=== PATIENT | female | born 1995 | race Caucasian/White ===

== ENCOUNTER 2025-06-27 06:37 | Inpatient (IN) | payer BC ==
[2025-06-27 07:37] LABS: PLATELET COUNT,PLT 126 10^3/uL (150-450); RED BLOOD CELL COUNT 4.32 10^6/uL (4.2-5.4); WHITE BLOOD CELL COUNT,WBC 9.0 10^3/uL (5.0-10.0)
[2025-06-27] MEDS: Lactated Ringers 1,000 ML IV SCH (08:00)
[2025-06-27 08:06] LABS: BAND PERCENT MAN 2 %; LYMPHOCYTES PERCENT MAN 14 % (20-50); MONOCYTES PERCENT MAN 5 % (2-8); SEG NEUTROPHILS PERCENT MAN 79 % (42-75)
[2025-06-27] MEDS: Oxytocin/Lactated Ringers 30 UNIT/500 ML BAG IV SCH (09:59)
[2025-06-27] MEDS ORDERED: Carboprost Tromethamine 250 MCG/1 ML Amp IM PRN ×2 (10:00→11:38)
[2025-06-27] MEDS ORDERED: Lactated Ringers 1,000 ML IV ONE (10:00)
[2025-06-27] MEDS ORDERED: Lactated Ringers 1,000 ML IV SCH (10:00)
[2025-06-27] MEDS ORDERED: Sodium Chloride 0.9% 10 ML Syringe FLUSH PRN (10:00)
[2025-06-27] MEDS ORDERED: Ondansetron 4 MG Tab.DIS PO PRN (10:00)
[2025-06-27] MEDS: Ondansetron 4 MG/2 ML SDV IVPUSH PRN (10:01)
[2025-06-27] MEDS ORDERED: Oxytocin 10 Units/1 ML SDV IM PRN (11:38)
[2025-06-27] MEDS: Benzocaine/Menthol 20%-0.5% Spray 78 GM Cannister TOP PRN (13:28)
[2025-06-27] MEDS: Witch Hazel Medicated Pads 100/Jar TOP PRN (13:28)
[2025-06-28 06:42] LABS: PLATELET COUNT,PLT 179.0 10^3/uL (150-450); RED BLOOD CELL COUNT 3.96 10^6/uL (4.2-5.4); WHITE BLOOD CELL COUNT,WBC 9.3 10^3/uL (5.0-10.0)
[2025-06-28] MEDS ORDERED: ePHEDrine 50 MG/ML SDV ONE (06:56)
[2025-06-28] MEDS ORDERED: Phenylephrine 1% 10 MG/ML SDV ONE (06:56)
[2025-06-28] MEDS: Prenatal Multivitamin with Calcium/Folic Acid/Iron Tab PO SCH (08:34)
== END 2025-06-28 14:56 | disposition home or self-care (01) | DRG 560 ==
LOC: DL.OBCHECK 06:37 → DL.OB 07:25 → OBSVTOIN 11:06
PROVIDERS: ADMIT Family Medicine; ATTEND Family Medicine
PROC: 0KQM0ZZ Repair Perineum Muscle, Open Approach (ICD-10-PCS; principal; 2025-06-27)
PROC: 10E0XZZ Delivery of Products of Conception, External Approach (ICD-10-PCS; principal; 2025-06-27)
PROC: 3E0R3BZ Introduction of Anesthetic Agent into Spinal Canal, Percutaneous Approach (ICD-10-PCS; principal; 2025-06-27)
DX: O99.12 Other diseases of the blood and blood-forming organs and certain disorders involving the immune mechanism complicating childbirth (principal); Z3A.38 38 weeks gestation of pregnancy; Z37.0 Single live birth; Z79.899 Other long term (current) drug therapy; O70.1 Second degree perineal laceration during delivery; D69.6 Thrombocytopenia, unspecified
CPT/HCPCS: 36415; 51701; 59409; 85007; 85027; A9270-GY; J2405; J2590; J7120

== ENCOUNTER 2025-07-03 13:41 | Emergency (ER) | payer BC ==
[2025-07-03] MEDS: Ketorolac 30 MG/ML SDV IVPUSH ONE (14:23)
[2025-07-03 14:26] LABS: BASOPHILS PERCENT AUTO 0.3 % (0.0-1.0); EOSINOPHILS PERCENT AUTO 1.5 % (1.0-3.0); LYMPHOCYTES PERCENT AUTO 27.7 % (20.5-50.1); MONOCYTES PERCENT AUTO 5.2 % (2-8); NEUTROPHILS PERCENT AUTO 65.3 % (42.2-75.2); PLATELET COUNT,PLT 278 10^3/uL (150-450); RED BLOOD CELL COUNT 4.67 10^6/uL (4.2-5.4); WHITE BLOOD CELL COUNT,WBC 7.8 10^3/uL (5.0-10.0)
[2025-07-03 14:30] LABS: APPEARANCE,URINE SLIGHTLY CLOUDY (CLEAR); GLUCOSE,URINE NEGATIVE (NEGATIVE); OCCULT BLOOD,URINE LARGE (NEGATIVE)
[2025-07-03] MEDS: Ondansetron 4 MG/2 ML SDV IVPUSH ONE (14:37)
[2025-07-03 14:49] LABS: ALANINE AMINOTRANSFERASE,ALT 28.0 U/L (14-59); ASPARTATE AMNIOTRANSFERASE,AST 19.0 U/L (15-37); BILIRUBIN TOTAL 0.3 mg/dL (0.2-1.0); BLOOD UREA NITROGEN,BUN 17.0 mg/dL (7-18); CARBON DIOXIDE,CO2 26.0 mmol/L (21-32); CHLORIDE,CL 105.0 mmol/L (98-107); CREATININE 0.9 mg/dL (0.55-1.02); EST CRCL DRUG DOSING (CG) 87.12 mL/min; GLUCOSE RANDOM 107.0 mg/dL (70-99); POTASSIUM,K 4.2 mmol/L (3.5-5.1); PROTEIN TOTAL,TP 7.3 g/dL (6.4-8.2); SODIUM,NA 141.0 mmol/L (136-145)
[2025-07-03 14:49] LABS: EPITHELIAL CELLS,URINE MODERATE /HPF (NOT SEEN)
[2025-07-03 14:53] LABS: A/G RATIO 0.74; ESTIMATED GFR 89.0 mL/min (>=60)
== END 2025-07-03 15:43 ==
LOC: DL.ED 13:41
DX: O99.893 Other specified diseases and conditions complicating puerperium (principal); Z79.899 Other long term (current) drug therapy
CPT/HCPCS: 36415; 74176; 80053; 81001; 85025; 87086; 96374; 96375; 99285; J1885; J2405; 99283